=== PATIENT | male | born 1990 | race Hispanic/Latino ===

== ENCOUNTER 2017-09-24 17:51 | Emergency (ER) | payer OTHER ==
[2017-09-24 18:44] VITALS: RESP 18; O2SAT 100
--- NOTE | 2017-09-24 20:54 | ED PDOC ---
HPI: Abdomen Time Seen by Provider: 09/24/17 20:30 Chief Complaint (Nursing): GI Problem History Per: Patient History/Exam Limitations: no limitations Onset/Duration Of Symptoms: Hrs Outside of [place] travel?: No Current Symptoms Are (Timing): Better Pain Scale Rating Of: 0 Additional Complaint(s): No PMHx presenting with rectal bleeding, states he has been on prophylactic doxycycline for a tick bite that he sustained on Monday, states on Monday after taking the medication he started having "upset stomach" with cramping that comes and goes, states he has had a mix of both constipation and diarrhea and today had one large bloody bowel movement and came to the ER to be checked out. Denies abdominal pain currently, no fevers, no vomiting. No sugeries, no other medications. Past Medical History Reviewed: Historical Data, Nursing Documentation, Vital Signs Vital Signs: Last Vital Signs Temp 98.2 F 09/24/17 20:56 Pulse 72 09/24/17 20:56 Resp 18 09/24/17 20:56 BP 122/76 09/24/17 20:56 Pulse Ox 100 09/24/17 21:38 - Medical History PMH: No Chronic Diseases - Family History Family History: States: Unknown Family Hx - Allergies Allergies/Adverse Reactions: Allergies Allergy/AdvReac Type Severity Reaction Status Date / Time No Known Allergies Allergy Verified 09/24/17 18:41 Review of Systems ROS Statement: Except As Marked, All Systems Reviewed And Found Negative Gastrointestinal: Positive for: Other (Rectal Bleeding) Physical Exam - Reviewed Nursing Documentation Reviewed: Yes Vital Signs Reviewed: Yes - Physical Exam Appears: Positive for: Well, Non-toxic, No Acute Distress Head Exam: Positive for: ATRAUMATIC, NORMAL INSPECTION, NORMOCEPHALIC Skin: Positive for: Normal Color, Warm, Rash (punctum of L upper thigh without any erythema surroudning) Eye Exam: Positive for: EOMI, Normal appearance, PERRL ENT: Positive for: Normal ENT Inspection Neck: Positive for: Normal, Painless ROM Cardiovascular/Chest: Positive for: Regular Rate, Rhythm Respiratory: Positive for: CNT, Normal Breath Sounds Gastrointestinal/Abdominal: Positive for: Normal Exam, Bowel Sounds, Soft. Negative for: Tenderness, Organomegaly, Mass, Distended, Guarding, Rebound, Asicites Back: Positive for: Normal Inspection Rectal: Positive for: Rectal Tone Is: (normal), Hemorrhoids (internal palpated ) , Other (light pink stool) Extremity: Positive for: Normal ROM Neurologic/Psych: Positive for: Alert, Oriented - ECG O2 Sat by Pulse Oximetry: 100 Pulse Ox Interpretation: Normal Medical Decision Making Medical Decision MakinPM A/P: No PMHx presenting with rectal bleed and abdominal cramping after taking doxycycline -unlikely patient has lyme's, no sequelae such as erythema migrans, joint pain, fevers, etc -likely medication side effect, possibly internal hemorrhoid -patient is stalbe, well appearing, normal vitals, suitable for outpatient followup -gave referral to GI Disposition - Clinical Impression Clinical Impression: Rectal bleed, Hemorrhoids, Medication side effects - Disposition Referrals: Juan Miguel Triplett MD [Staff Provider] - [facility] [Outside] Disposition: Routine/Home Disposition Time: 20:30 Condition: STABLE Additional Instructions: Please followup with a GI doctor if the bleeding continues. If it significantly worsens, please return to the ER for re-evaluation. Instructions: Hemorrhoids, Side Effects From Medicines, Bloody Stools, Adult ( DC) Forms: [employer] ([place]ian)
[2017-09-24 20:59] VITALS: BP 122/76; PULSE 72; TEMP 98.2
== END 2017-09-24 21:00 | disposition home or self-care (01) ==
LOC: H.ER 17:51
DX: K62.5 Hemorrhage of anus and rectum (principal); K64.9 Unspecified hemorrhoids